=== PATIENT | male | born 1985 | race African-American/Black ===

== ENCOUNTER 2024-07-26 12:49 | Emergency (ER) | payer OTHER ==
[2024-07-26 13:12] VITALS: TEMP 97.9
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
[2024-07-26] MEDS: IBUPROFEN 600 MG TAB PO STA (13:43)
[2024-07-26 14:44] VITALS: BP 151/84; PULSE 62; RESP 18
== END 2024-07-26 14:53 | disposition home or self-care (01) ==
LOC: EC 12:49
DX: S61.012A Laceration without foreign body of left thumb without damage to nail, initial encounter (principal); F17.290 Nicotine dependence, other tobacco product, uncomplicated; W26.8XXA Contact with other sharp object(s), not elsewhere classified, initial encounter
CPT/HCPCS: 12002; 99283

== ENCOUNTER 2024-08-02 19:54 | Emergency (ER) | payer OTHER ==
[2024-08-02 19:59] VITALS: RESP 17
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
[2024-08-02] MEDS: KETOROLAC 15 MG/ML 1 ML VIAL IM STA (21:29)
[2024-08-02 22:14] VITALS: BP 136/90; PULSE 96; TEMP 97.9
== END 2024-08-02 22:14 | disposition home or self-care (01) ==
LOC: EC 19:54
DX: S90.31XA Contusion of right foot, initial encounter (principal); F17.290 Nicotine dependence, other tobacco product, uncomplicated; W50.0XXA Accidental hit or strike by another person, initial encounter; Y93.68 Activity, volleyball (beach) (court)
CPT/HCPCS: 73630; 99283; 96372; J1885